=== PATIENT | male | born 2000 | race Caucasian/White ===

== ENCOUNTER 2020-06-18 09:44 | Emergency (ER) | payer OTHER ==
[~2020-06-18] VITALS: Ht 170.2 cm; Wt 60.0 kg
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
[2020-06-18 10:56] VITALS: BP 112/56
[2020-06-18] MEDS ORDERED: KETO10TAB PO (10:57)
[2020-06-18] MEDS ORDERED: KETOROLAC 30 MG/ML 1ML VIAL IV ONE (11:00)
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
== END 2020-06-18 11:06 | disposition home or self-care (01) ==
LOC: M ED 09:44 → EDBD 09:44 → M ED 11:06
DX: M54.2 Cervicalgia (principal); V43.53XA Car driver injured in collision with pick-up truck in traffic accident, initial encounter; Y92.9 Unspecified place or not applicable; Y93.9 Activity, unspecified; Y99.9 Unspecified external cause status; R91.8 Other nonspecific abnormal finding of lung field
CPT/HCPCS: 70450; 71250; 72125; 96374; 99284; J1885

== ENCOUNTER 2020-06-20 07:06 | Emergency (ER) | payer OTHER ==
[~2020-06-20] VITALS: Ht 167.6 cm; Wt 61.9 kg
[~2020-06-20 07:06] MED LIST: KETO10TAB PO
[2020-06-20] MEDS ORDERED: SUCRALFATE SUSP 1GM/10ML UD PO ONE (07:30)
[2020-06-20 08:39] LABS: BASO # 0.1 10^3/uL (0.0-0.2); BASO % 1.4 % (0.0-1.0); EOS # 0.1 10^3/uL (0.0-0.5); EOS % 2.1 % (0.0-3.0); HEMATOCRIT 45.1 % (42.0-52.0); HEMOGLOBIN 14.5 g/dl (13.5-17.5); LYMPH # 1.8 10^3/uL (1.5-5.0); LYMPH % 32.2 % (24.0-44.0); MEAN CORPUSCULAR HEMOGLOBIN 28.8 pg (27.0-33.0); MEAN CORPUSCULAR HGB CONC 32.2 g/dl (32.0-36.5); MEAN CORPUSCULAR VOLUME 89.5 fl (80.0-96.0); MONO # 0.6 10^3/uL (0.0-0.8); MONO % 10.9 % (0.0-5.0); PLATELET COUNT, AUTOMATED 236 10^3/uL (150-450); RED BLOOD COUNT 5.04 10^6/uL (4.30-6.10); WHITE BLOOD COUNT 5.6 10^3/uL (4.0-10.0)
[2020-06-20 09:08] LABS: ALBUMIN 3.8 GM/DL (3.2-5.2); BILIRUBIN,DIRECT 0.1 MG/DL (0.0-0.2); BILIRUBIN,TOTAL 0.3 MG/DL (0.2-1.0); TOTAL PROTEIN 7.2 GM/DL (6.4-8.2)
[2020-06-20 09:28] VITALS: BP 116/55
== END 2020-06-20 09:38 | disposition home or self-care (01) ==
LOC: M ED 07:06
DX: R11.0 Nausea (principal); F17.200 Nicotine dependence, unspecified, uncomplicated

== ENCOUNTER 2020-08-03 17:00 | Emergency (ER) | payer OTHER ==
[~2020-08-03] VITALS: Ht 167.6 cm; Wt 62.8 kg
[2020-08-03 17:00] VITALS: BP 153/66
[2020-08-03] MEDS ORDERED: LIDOCAINE 1% MDV 20ML VIAL SC ONE (17:30)
[2020-08-03] MEDS ORDERED: NEOSPORIN OINT 0.9 GM PKT TOP ONE (18:00)
[2020-08-03] MEDS ORDERED: AUGMENTIN 875 MG TAB PO ONE (18:00)
[2020-08-03] MEDS ORDERED: AUGM875T28 PO (18:05)
== END 2020-08-03 18:18 | disposition home or self-care (01) ==
LOC: M ED 17:00
DX: S61.213A Laceration without foreign body of left middle finger without damage to nail, initial encounter (principal); W55.01XA Bitten by cat, initial encounter; Y92.099 Unspecified place in other non-institutional residence as the place of occurrence of the external cause; Y93.89 Activity, other specified; Y99.9 Unspecified external cause status

== ENCOUNTER 2021-02-01 22:24 | Emergency (ER) | payer OTHER ==
[~2021-02-01] VITALS: Ht 167.6 cm; Wt 65.5 kg
[~2021-02-01 22:24] MED LIST changes: +AUGM875T28 PO
[2021-02-01 22:26] VITALS: BP 124/63
[2021-02-02] MEDS ORDERED: TETRACAINE 0.5% OPHTH SOLN 4ML OU ONE (00:05)
[2021-02-02] MEDS ORDERED: FLUORESCEIN OPHTH 1 MG STRIP OU ONE (00:05)
[2021-02-02] MEDS ORDERED: CIPROFLOXACIN 0.3% OPHTH SOLN 2.5ML OU ONE (00:35)
[2021-02-02] MEDS ORDERED: ACETAMINOPHEN 500 MG TAB PO ONE (00:35)
[2021-02-02] MEDS ORDERED: IBUPROFEN 600MG TAB PO ONE (00:35)
[2021-02-02] MEDS ORDERED: KETOROLAC 0.5% OPHTH SOLN OU ONE (00:35)
[2021-02-02] MEDS ORDERED: CIPR0.3S6 OP (00:42)
[2021-02-02] MEDS ORDERED: ACUV0.45 OP (00:42)
== END 2021-02-02 00:58 | disposition home or self-care (01) ==
LOC: M ED 22:24
DX: S05.01XA Injury of conjunctiva and corneal abrasion without foreign body, right eye, initial encounter (principal); S05.02XA Injury of conjunctiva and corneal abrasion without foreign body, left eye, initial encounter; X58.XXXA Exposure to other specified factors, initial encounter; Y92.9 Unspecified place or not applicable; Y93.9 Activity, unspecified; Y99.9 Unspecified external cause status; F17.200 Nicotine dependence, unspecified, uncomplicated

== ENCOUNTER 2021-03-31 06:40 | Emergency (ER) | payer OTHER ==
[~2021-03-31] VITALS: Ht 167.6 cm; Wt 62.5 kg
[~2021-03-31 06:40] MED LIST changes: +ACUV0.45 OP; +CIPR0.3S6 OP
[2021-03-31] MEDS ORDERED: ACETAMINOPHEN TAB 650MG DOSE (2X325MG) PO ONE (07:30)
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
[2021-03-31] MEDS ORDERED: MOTR200T44 PO (08:46)
[2021-03-31 08:55] VITALS: BP 129/61
== END 2021-03-31 09:03 | disposition home or self-care (01) ==
LOC: M ED 06:40
DX: S39.012A Strain of muscle, fascia and tendon of lower back, initial encounter (principal); V43.52XA Car driver injured in collision with other type car in traffic accident, initial encounter; Y92.9 Unspecified place or not applicable; Y93.9 Activity, unspecified; Y99.9 Unspecified external cause status